=== PATIENT | male | born 1990 | race Caucasian/White ===

== ENCOUNTER 2017-12-16 03:22 | Emergency (ER) | payer MEDICAID ==
[2017-12-16 03:28] VITALS: RESP 18; TEMP 98.4
--- NOTE | 2017-12-16 04:52 | EDPHY ---
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 He cut with a knife. The knife was clean. Does have prior injuries to that hand. ROS: 10 point Review of Systems is negative except as noted in the HPI. Physical Exam: General: Awake, alert, no acute distress Right hand: Patient has a 7 mm laceration over the PIP joint on the palmar aspect of his right little finger. He has decreased flexion of the middle and distal phalanx. Sensations intact laterally and medially. Capillary refills less than 2 sec. There is no other injuries or deficits. Skin: No rash - Personal History Current Tetanus/Diphtheria Vaccine: No Current Tetanus Diphtheria and Acellular Pertussis (TDAP): No - Medical/Surgical History Hx Asthma: No Hx Chronic Respiratory Disease: No Hx Diabetes: No Hx Cardiac Disease: No Hx Renal Disease: No Hx Cirrhosis: No Hx Alcoholism: No Hx HIV/AIDS: No Hx Splenectomy or Spleen Trauma: No Other PMH: nasal surgery - Social History Smoking Status: Current every day smoker Constitutional: Initial Vital Signs Temperature (C) 36.9 C 12/16/17 03:24 Heart Rate 110 H 12/16/17 03:24 Respiratory Rate 18 12/16/17 03:24 Blood Pressure 156/105 H 12/16/17 03:24 O2 Sat (%) 97 12/16/17 03:24 O2 Delivery Mode Room Air Allergies/Adverse Reactions: No Known Allergies Allergy (Unverified 12/16/17 03:28) Home Medications: Medication Instructions Recorded Cephalexin [Keflex (*)] 500 mg PO Q6H #28 cap 12/16/17 Medical Decision Making Procedures: Procedure: Laceration repair. Verbal consent was obtained from the patient. The 5 mm laceration on the right 5th finger was anesthetized in the usual fashion. The wound was irrigated, draped and explored to its base with a gloved finger. There were no deep structures involved. No tendon injury was identified. The wound was repaired with a single 5-0 Ethilon simple interrupted suture. The wound repair was uncomplicated. The procedure was performed by myself. ED Course/Re-evaluation: Patient has a laceration over the PIP joint. Patient is unable to flex it. I am uncertain whether this is a functional thing or of whether he is unwilling to. Patient's laceration the has been closed. I will start him on antibiotics and refer him to Hand surgery for further assessment. Departure - Departure Disposition: Home, Routine, Self-Care Clinical Impression: Laceration, Tendon laceration Condition: Good Instructions: Laceration (ED), Care For Your Stitches (ED) Additional Instructions: Follow up with Dr. Deleon, hand surgeon, in 2-3 days for further evaluation. Please take your full course of antibiotics. Return to the emergency department for increasing pain, redness, discharge from the wound, fevers, chills, or any other concerns. Referrals: Arturo Deleon MD [Medical Doctor] - As per Instructions Prescriptions: Cephalexin [Keflex (*)] 500 mg PO Q6H #28 cap
[2017-12-16 05:03] VITALS: BP 165/90; PULSE 100; O2SAT 95
== END 2017-12-16 05:03 | disposition home or self-care (01) ==
PROC: 0HQFXZZ Repair Right Hand Skin, External Approach (ICD-10-PCS; principal; 2017-12-16)
DX: S61.216A Laceration without foreign body of right little finger without damage to nail, initial encounter (principal); F17.200 Nicotine dependence, unspecified, uncomplicated; W26.0XXA Contact with knife, initial encounter

== ENCOUNTER 2017-12-28 05:45 | Day surgery (SDC) | payer MEDICAID ==
--- NOTE | 2017-12-27 08:58 | GHP ---
[f rep st] PREOP HISTORY AND PHYSICAL DATE OF ADMISSION: 12/28/2017 DATE OF PLANNED PROCEDURE: 12/28/2017. ADMISSION DIAGNOSIS: Laceration, 5th finger flexor tendon, right hand. PLANNED PROCEDURE: Flexor tendon repair, right hand, 5th finger. HISTORY OF PRESENT ILLNESS: The patient is a 27-year-old male who lacerated his flexor tendon with a knife on December 16, 2017. He was seen in the emergency department, found to have a flexor tendon injury. The wound was irrigated. He was given antibiotics. The skin was loosely closed. Placed in a splint. He was seen in our office, and decision had been made to proceed with a flexor tendon rep air to his 5th finger. PRIOR MEDICAL HISTORY: None. SURGICAL HISTORY: None. MEDICATIONS: None. ALLERGIES: Wasp venom. 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 Does not smoke. Reports occasional alcohol use. REVIEW OF SYSTEMS: Unremarkable. PHYSICAL EXAM: VITAL SIGNS: Blood pressure is 136/62, heart rate is 66, respiratory rate is 14 on r oom air. He is 63 inches tall, weighs 215 pounds. Alert and oriented x3. HEENT: Normocephalic, at raumatic. Extraocular muscles intact. NECK: Supple. There is no lymphadenopathy. No JVD. CHEST: Clear to auscultation. CARDIOVASCULAR: Regular rate and rhythm. ABDOMEN: Soft, nontender, nondi stended. EXTREMITY: Shows a laceration just distal to the MCP joint of the 5th finger of his right hand. There is no active flexion of the PIP or DIP joint of that finger. Sensation to light touch i s intact to the tip of the finger. Brisk capillary refill. ASSESSMENT: Flexor tendon laceration, right hand, 5th finger. PLAN: I recommend proceeding with a flexor tendon repair. He will be splinted initially and will st art hand therapy the next week. Preoperative paperwork was completed. He was given a prescription f or pain medication, and we will see him Sunday at the hospital. /[id number]/MODL
[2017-12-28] MEDS ORDERED: ceFAZolin 2 GM/SWFI 2 GM/20 ML SYR IVP ONE (06:09)
[2017-12-28] MEDS ORDERED: LR 1,000 ML IV ONE (06:20)
[2017-12-28] MEDS ORDERED: BUPIVACAINE 0.5% 10 ML SDV ONE (06:52)
--- NOTE | 2017-12-28 06:52 | PDHPUP ---
History & Physical Update H&P update statement: This history and physical update is based on an assessment of the patient which was completed after admission or registration (within 24 hours), but prior to the surgery/procedure. H&P update: H&P reviewed & patient examined, no change in patient's condition since H&P completed
[2017-12-28] MEDS ORDERED: MIDAZOLAM 2 MG/2 ML VIAL IVP ONE (07:00)
--- NOTE | 2017-12-28 07:00 | PDANEPAE ---
ANE History of Present Illness right finger inj ANE Past Medical History - Cardiovascular History Hx Hypertension: No Hx Arrhythmias: No Hx Chest Pain: No Hx Coronary Artery / Peripheral Vascular Disease: No Hx CHF / Valvular Disease: No Hx Palpitations: No - Pulmonary History Hx COPD: No Hx Asthma/Reactive Airway Disease: No Hx Recent Upper Respiratory Infection: No Hx Oxygen in Use at Home: No Hx Sleep Apnea: Yes Sleep Apnea Screening Result - Last Documented: Positive - Neurologic History Hx Cerebrovascular Accident: No Hx Seizures: No Hx Dementia: No - Endocrine History Hx Diabetes: No - Renal History Hx Renal Disorders: No - Liver History Hx Hepatic Disorders: No - Neurological & Psychiatric Hx Hx Neurological and Psychiatric Disorders: Yes Neurological / Psychiatric History Comment: ANXIETY - Cancer History Hx Cancer: No - Congenital Disorder History Hx Congenital Disorders: No - GI History Hx Gastrointestinal Disorders: No - Other Health History Other Health History: NONE - Chronic Pain History Chronic Pain: No - Surgical History Prior Surgeries: NONE ANE Review of Systems Review of systems is: negative Review of Systems: - Exercise capacity Exercise capacity: >=4 METS METS (RN): 4 METS ANE Patient History - Allergies Allergies/Adverse Reactions: wasp venom Allergy (Uncoded 12/28/17 06:27) - Home Medications Home Medications: Cephalexin [Keflex (*)] 12/26/17 [Last Taken 12/26/17] - NPO status NPO Status: no food or drink >8 hours NPO Since - Liquids (Date): 12/28/17 NPO Since - Liquids (Time): 05:00 NPO Since - Solids (Date): 12/27/17 NPO Since - Solids (Time): 22:00 - Anes Hx Anes Hx: no prior problems - Smoking Hx Smoking Status: Current every day smoker Marijuana use: No - Alcohol Use Alcohol Use: Occasionally - Family Anes Hx Family Anes Hx: none Family Hx Anesthesia Complications: NONE ANE Labs/Vital Signs - Vital Signs Vital Signs: reviewed preoperatively; see RN documention for details Blood Pressure: 137/82 Heart Rate: 79 Respiratory Rate: 16 O2 Sat (%): 93 Height: 191.77 cm Weight: 92.986 kg ANE Physical Exam - Airway Neck exam: FROM Mallampati Score: Class 1 - Pulmonary Pulmonary: no respiratory distress - Cardiovascular Cardiovascular: regular rate and rhythym - ASA Status ASA Status: I ANE Anesthesia Plan Anesthesia Plan: MAC (miquel block)
[2017-12-28] MEDS ORDERED: fentaNYL 100 MCG/2 ML INJ ONE ×3 (07:07→09:23)
[2017-12-28] MEDS ORDERED: LIDOCAINE 2% 5 ML SDV ONE (07:07)
[2017-12-28] MEDS ORDERED: PROPOFOL/EMULSION 500 MG/50 ML BOTTLE IV ONE ×2 (07:07→07:37)
[2017-12-28] MEDS ORDERED: LIDOCAINE 0.5% 50 ML SDV ONE (07:07)
[2017-12-28] MEDS ORDERED: KETOROLAC 30 MG/1 ML SDV ONE (08:23)
--- NOTE | 2017-12-28 08:27 | POSTOPPROG ---
Post Op Note Date of Operation: 12/28/17 Surgeon: Arturo Deleon Anesthesiologist: Tyler Anesthesia: Local (Specify) (miquel block) Pre-op Diagnosis: Flexor tendon laceration 5th finger, RT Post-op Diagnosis: same Procedure: Flexor tendon repair Inf/Abcess present in the surg proc area at time of surgery?: No EBL: Minimal Complications: none
[2017-12-28] MEDS ORDERED: NALOXONE HCL 0.4 MG/ML INJ IVP PRN (08:32)
[2017-12-28] MEDS ORDERED: HYDROCODONE/APAP 5/325 TAB PO PRN (08:32)
[2017-12-28] MEDS ORDERED: PROMETHAZINE HCL 25 MG/ML INJ IVP PRN (08:32)
[2017-12-28] MEDS ORDERED: ONDANSETRON 4 MG/2 ML VIAL IVP PRN (08:32)
--- NOTE | 2017-12-28 08:33 | POSTANESTH ---
Post Anesthetic Evaluation Cardiovascular Status: Normal, Stable Respiratory Status: Normal, Stable Level of Consciousness/Mental Status: Can Participate in Eval Pain Control: Adequate, Prn Tx Ordered Nausea/Vomiting Control: Adequate, Prn Tx Ordered Complications Possibly Related to Anesthesia: None Noted
[2017-12-28] MEDS: fentaNYL 100 MCG/2 ML INJ IVP PRN ×4 (08:45→09:31)
[2017-12-28] MEDS ORDERED: OXYCODONE/APAP 5/325 TAB ONE ×2 (09:04→09:58)
[2017-12-28] MEDS: OXYCODONE/APAP 5/325 TAB PO PRN ×2 (09:05→10:06)
[2017-12-28 09:46] VITALS: PULSE 68; RESP 16; TEMP 97.9
[2017-12-28 10:09] VITALS: BP 129/79; O2SAT 95
--- NOTE | 2017-12-28 11:22 | GOP ---
[f rep st] OPERATIVE REPORT DATE OF OPERATION: 12/28/2017 SURGEON: Arturo Deleon MD ANESTHESIA: Alanna block. ANESTHESIOLOGIST: Sly Scott MD PREOPERATIVE DIAGNOSIS: Flexor tendon laceration zone 2, 5th finger right hand. POSTOPERATIVE DIAGNOSIS: Flexor tendon laceration zone 2, 5th finger right hand. PROCEDURE PERFORMED: Flexor tendon repair, deep flexor tendon 5th finger right hand. FINDINGS: DESCRIPTION OF PROCEDURE: After appropriate informed consent was obtained, the patient was taken to the operating room, placed supine on the operating table. Time-out performed. Patient was identified , correct site was identified. A [place] block was administered by Dr. Scott. Right upper extremity was prepped and draped in usual sterile fashion. I extended the laceration in a Z-type fashion both proximally and distally to identify both the proximal distal ends of the tendon. The superficialis te ndon was intact. Then, using a 3-0 V-Loc suture, I placed 4 core sutures in a modified Brunell techn ique reapproximating the ends of the tendon without any gap formation. I then closed the paratenon wi th 4-0 Ethibond in a baseball suture configuration. Wound was irrigated. The skin was closed loosely with 3-0 nylon. The patient was placed in a sterile dressing and splint with his MCP joint flexed to 90, DIP and PIP in neutral. Awakened from anesthesia, taken to the recovery room in satisfactory con dition. There were no immediate intraoperative complications. TOTAL TOURNIQUET TIME: 63 minutes at 250 mmHg. COMPLICATIONS: None. DRAINS: None. HISTORY: The patient is a 27-year-old male, who was slicing a bagel approximately a week ago and gabby tained a flexor tendon injury to his right 5th finger. He was seen in the ER, the wound was irrigate d and closed. Placed on Keflex. He was seen in my office. Decision was made to proceed with a flexor tendon repair. /[id number]/MODL
== END 2017-12-28 10:20 | disposition home or self-care (01) ==
LOC: FSGY 05:45
PROVIDERS: ATTEND Orthopaedic Surgery
PROC: 0LS70ZZ Reposition Right Hand Tendon, Open Approach (ICD-10-PCS; principal; 2017-12-28 07:15)
DX: S61.216A Laceration without foreign body of right little finger without damage to nail, initial encounter (principal); W26.0XXA Contact with knife, initial encounter; Y93.G1 Activity, food preparation and clean up; Y92.000 Kitchen of unspecified non-institutional (private) residence as the place of occurrence of the external cause; F17.200 Nicotine dependence, unspecified, uncomplicated
CPT/HCPCS: J0690; J1885; J2250; J2704; J3010

== ENCOUNTER 2018-04-08 05:54 | Day surgery (SDC) | payer MEDICAID ==
--- NOTE | 2018-04-05 12:51 | GHP ---
[f rep st] PREOP HISTORY AND PHYSICAL DATE OF ADMISSION: 04/08/2018 DATE OF PLANNED PROCEDURE: 04/08/2018. PREOPERATIVE DIAGNOSIS: Adhesions following 5th finger right hand flexor tendon repair. HISTORY OF PRESENT ILLNESS: The patient is a 27-year-old male who sustained a flexor tendon lacerati on. This was repaired by myself on December 28, 2012. He has done ongoing physical therapy but he has b een unable to improve his active range of motion of the DIP joint of the 5th finger and decision was made to proceed with a flexor tendon tenolysis. PRIOR MEDICAL HISTORY: None. SURGICAL HISTORY: Flexor tendon repair December of 2017. MEDICATIONS: None. ALLERGIES: Wasp venom. SOCIAL HISTORY: Occasional alcohol use. Does not smoke. 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 REVIEW OF SYSTEMS: Unremarkable. PHYSICAL EXAM: VITAL SIGNS: He weighs 215 pounds, he is 6 feet 5 inches tall, blood pressure is 128 /60, heart rate 64, respiratory rate is 12 on room air. GENERAL: Alert and oriented x3. HEENT: No rmocephalic, atraumatic. Extraocular muscles intact. NECK: Supple. There is no lymphadenopathy. No JVD. CHEST: Clear to auscultation. CARDIOVASCULAR: Regular rate and rhythm. ABDOMEN: Soft, n ontender, nondistended. EXTREMITIES: Focusing on the right hand well-healed laceration incision ove r the volar aspect of the PIP joint of the 5th finger. He has good strength of the flexor tendon. H owever, there is no active motion at the PIP. Passively he has full range of motion of the both PIP, DIP and MCP joints. Sensation to light touch intact to the tip of the finger. Brisk capillary refi ll. ASSESSMENT: Adhesions following flexor tendon repair 5th finger right hand. PLAN: Given the patient's age and activity level I recommend proceeding with a flexor tendon tenolys is. He has not gained any range of motion in the last month. He has good strong pull at that PIP khloe int, just no active motion. Risks and benefits of the surgery were discussed including stiffness aga in postoperatively and possible need for additional surgery. He understands this risk and wished to proceed. We will plan on surgery next Sunday at the hospital. His preoperative paperwork was comple arnav today in the office. /[id number]/MODL
[2018-04-08] MEDS ORDERED: BUPIVACAINE 0.25% 30 ML SDV ONE (06:13)
[2018-04-08] MEDS ORDERED: ceFAZolin 2 GM/DEXTROSE 100 ML IV ONE (06:30)
[2018-04-08] MEDS ORDERED: LR 1,000 ML IV ONE (06:31)
[2018-04-08] MEDS ORDERED: LIDOCAINE 1% 2 ML INJ ID PRN (06:31)
--- NOTE | 2018-04-08 06:50 | PDANEPAE ---
ANE History of Present Illness R trigger finger release ANE Past Medical History - Cardiovascular History Hx Hypertension: No Hx Arrhythmias: No Hx Chest Pain: No Hx Coronary Artery / Peripheral Vascular Disease: No Hx CHF / Valvular Disease: No Hx Palpitations: No - Pulmonary History Hx COPD: No Hx Asthma/Reactive Airway Disease: No Hx Recent Upper Respiratory Infection: No Hx Oxygen in Use at Home: No Hx Sleep Apnea: Yes Sleep Apnea Screening Result - Last Documented: Positive Pulmonary History Comment: dedie positive- pt states he doesn't use cpap regularly - Neurologic History Hx Cerebrovascular Accident: No Hx Seizures: No Hx Dementia: No - Endocrine History Hx Diabetes: No - Renal History Hx Renal Disorders: No - Liver History Hx Hepatic Disorders: No - Neurological & Psychiatric Hx Hx Neurological and Psychiatric Disorders: Yes Neurological / Psychiatric History Comment: ANXIETY - Cancer History Hx Cancer: No - Congenital Disorder History Hx Congenital Disorders: No - GI History Hx Gastrointestinal Disorders: No - Other Health History Other Health History: wears glasses - Chronic Pain History Chronic Pain: No - Surgical History Prior Surgeries: 12/28/17 right finger extension tendon repair with [place] ANE Review of Systems Review of systems is: negative Review of Systems: - Exercise capacity METS (RN): 4 METS ANE Patient History - Allergies Allergies/Adverse Reactions: wasp venom Allergy (Uncoded 04/05/18 14:36) - Home Medications Home medications: home medication list seen and reviewed Home Medications: Herbals/Supplements -Info Only 04/05/18 [Last Taken 04/04/18] - NPO status NPO Status: no food or drink >8 hours - Anes Hx Anes Hx: no prior problems - Smoking Hx Smoking Status: Current every day smoker - Family Anes Hx Family Anes Hx: none Family Hx Anesthesia Complications: none ANE Labs/Vital Signs - Vital Signs Vital Signs: reviewed preoperatively; see RN documention for details Height: 197.77 cm Weight: 92.986 kg ANE Physical Exam - Airway Neck exam: FROM Mallampati Score: Class 1 Mouth exam: normal dental/mouth exam - Pulmonary Pulmonary: no respiratory distress - Cardiovascular Cardiovascular: regular rate and rhythym - ASA Status ASA Status: II ANE Anesthesia Plan Total IV Anesthesia: Yes
[2018-04-08] MEDS ORDERED: MIDAZOLAM 2 MG/2 ML VIAL IVP ONE (06:56)
[2018-04-08] MEDS ORDERED: PROPOFOL/EMULSION 500 MG/50 ML BOTTLE IV ONE ×2 (07:05→07:56)
[2018-04-08] MEDS ORDERED: CEFAZOLIN 2 GM/DEXTROSE/100 ML BAG IV ONE (07:13)
[2018-04-08] MEDS ORDERED: LIDOCAINE 1% 300 MG/30 ML SDV ONE ×2 (07:14→07:23)
[2018-04-08] MEDS ORDERED: oxyCODONE IR 5 MG TAB PO PRN (07:50)
[2018-04-08] MEDS ORDERED: DEXAMETHASONE 4 MG/ML VIAL IVP PRN (07:50)
[2018-04-08] MEDS ORDERED: HYDROmorphONE/DILAUDID 1 MG/ML INJ IVP PRN (07:50)
[2018-04-08] MEDS ORDERED: NALOXONE HCL 0.4 MG/ML INJ IVP PRN (07:50)
[2018-04-08] MEDS ORDERED: ONDANSETRON 4 MG/2 ML VIAL IVP PRN (07:50)
[2018-04-08] MEDS ORDERED: fentaNYL 100 MCG/2 ML INJ IVP PRN (07:50)
[2018-04-08] MEDS ORDERED: MEPERIDINE 25 MG/0.5 ML AMP IVP PRN (07:50)
[2018-04-08] MEDS ORDERED: ACETAMINOPHEN 500 MG TAB PO PRN (07:50)
--- NOTE | 2018-04-08 07:52 | POSTANESTH ---
Post Anesthetic Evaluation Cardiovascular Status: Normal, Stable, Similar to Pre-Op Cond Respiratory Status: Similar to Pre-op Cond. Level of Consciousness/Mental Status: Can Participate in Eval, Mildly Sleepy, Arousable Pain Control: Adequate, Prn Tx Ordered Nausea/Vomiting Control: Adequate, Prn Tx Ordered Complications Possibly Related to Anesthesia: None Noted
--- NOTE | 2018-04-08 08:23 | POSTOPPROG ---
Post Op Note Date of Operation: 04/08/18 Surgeon: Arturo Deleon Anesthesiologist: liza Anesthesia: IV Sedation Pre-op Diagnosis: adhsions 5th foinger s/p flexor tendon repair Post-op Diagnosis: same Indication: loss of function Inf/Abcess present in the surg proc area at time of surgery?: No EBL: Minimal Complications: none
--- NOTE | 2018-04-08 08:41 | GOP ---
[f rep st] OPERATIVE REPORT DATE OF OPERATION: 04/08/2018 SURGEON: Arturo Deleon MD ANESTHESIA: Local with monitored anesthesia care, IV sedation. ANESTHESIOLOGIST: Anastacio Carreon MD PREOPERATIVE DIAGNOSIS: Adhesions following flexor tendon repair, 5th finger of right hand. POSTOPERATIVE DIAGNOSIS: Adhesions following flexor tendon repair, 5th finger of right hand. PROCEDURE PERFORMED: Flexor tendon tenolysis, right hand 5th finger. FINDINGS: DESCRIPTION OF PROCEDURE: After appropriate informed consent was obtained, the patient was taken to the operating room and placed supine on the operating table. Time-out was performed. The patient wa s identified. Correct site was identified. He received 2 g of Ancef preoperatively. I administered 20 mL of 1% lidocaine plain in a digital block fashion. Dr. Carreon administered IV sedation. We then prepped the right hand in the usual sterile fashion. Using the previous incision and laceration , I opened up the flexor tendon distally and worked proximally. There were extensive adhesions and s car tissue formation throughout the tendon extending from the PIP all the way to the DIP joint. I wa s able to free it up. The repair looked good. He had good mobility after the adhesions were removed . I irrigated the wound, closed the skin loosely with 3-0 nylon and instilled 20 mL of 0.25% Marcain e plain in a digital block fashion. A soft sterile dressing was applied. The patient was awakened f rom anesthesia, taken to the recovery room in satisfactory condition. There were no immediate intrao perative complications. TOTAL TOURNIQUET TIME: 35 minutes at 250 mmHg. COMPLICATIONS: None. DRAINS: None. HISTORY: Trell is a 27-year-old male who, a little over 3 months ago, underwent a flexor tendon re pair. He has had difficulty regaining DIP joint flexion, has good PIP and MCP flexion. Decision was made to proceed with a flexor tendon tenolysis. /[id number]/MODL
[2018-04-08] MEDS ORDERED: fentaNYL 100 MCG/2 ML INJ ONE (08:43)
[2018-04-08] MEDS ORDERED: HYDROCODONE/APAP 5/325 TAB ONE ×2 (08:48→09:25)
[2018-04-08] MEDS: HYDROCODONE/APAP 5/325 TAB PO PRN ×2 (08:48→09:31)
[2018-04-08 09:38] VITALS: BP 144/79
--- NOTE | 2018-04-10 14:57 | GOP ---
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 ANESTHESIOLOGIST: Anastacio Carreon MD PREOPERATIVE DIAGNOSIS: Adhesions following flexor tendon repair, 5th finger of right hand. POSTOPERATIVE DIAGNOSIS: Adhesions following flexor tendon repair, 5th finger of right hand. PROCEDURE PERFORMED: Flexor tendon tenolysis, right hand 5th finger. FINDINGS: DESCRIPTION OF PROCEDURE: After appropriate informed consent was obtained, the patient was taken to the operating room and placed supine on the operating table. Time-out was performed. The patient was identified. Correct site was identified. He received 2 g of Ancef preoperatively. I administered 20 mL of 1% lidocaine plain in a digital block fashion. Dr. Carreon administered IV sedation. We then prepped the right hand in the usual sterile fashion. Using the previous incision and laceration, I opened up the flexor tendon distally and worked proximally. There were extensive adhesions and scar tissue formation throughout the tendon extending from the PIP all the way to the DIP joint. I was able to free it up. The repair looked good. He had good mobility after the adhesions were removed. I irrigated the wound, closed the skin loosely with 3-0 nylon and instilled 20 mL of 0.25% Marcaine plain in a digital block fashion. A soft sterile dressing was applied. The patient was awakened from anesthesia, taken to the recovery room in satisfactory condition. There were no immediate intraoperative complications. TOTAL TOURNIQUET TIME: 35 minutes at 250 mmHg. COMPLICATIONS: None. DRAINS: None. HISTORY: Berenice is a 27-year-old male who, a little over 3 months ago, underwent a flexor tendon repair. He has had difficulty regaining DIP joint flexion, has good PIP and MCP flexion. Decision was made to proceed with a flexor tendon tenolysis. /[id number]/MODL NOTE: At the time of financial health counselor of this report, there may have been blank(s) to be edited by the dictating clinician. By signing this report, I attest that I have reviewed any blanks in the document, and have either corrected them and/or have no further information to add. Arturo Deleon MD 04/09/1821 <Electronically signed by Arturo Deleon MD> 3 T: SILVIO 04/08/1836 CC: Arturo Deleon MD
== END 2018-04-08 09:35 | disposition home or self-care (01) ==
LOC: FSGY 05:54
PROVIDERS: ATTEND Orthopaedic Surgery
PROC: 0LN70ZZ Release Right Hand Tendon, Open Approach (ICD-10-PCS; principal; 2018-04-08 07:15)
DX: M67.841 Other specified disorders of synovium, right hand (principal); S66.12 Laceration of flexor muscle, fascia and tendon of other and unspecified finger at wrist and hand level
CPT/HCPCS: J0690; J2250; J2704; J3010